=== PATIENT | female | born 1950 ===

== ENCOUNTER 2023-04-08 04:33 | Day surgery (SDC) | payer OTHER ==
[~2023-04-08 04:33] MED LIST: DOXAZOSIN MESYLA2 MG PO; GLUCOVANCE PO; PLAVIX75 MG PO; ROSUVAST PO; TIROSINT25 MCG PO; TOPROL XL25 M1 PO; ZESTORETIC 20-1 EAC1 PO
[2023-04-08] MEDS ORDERED: TRAM1TAB98 PO (12:07)
[2023-04-08] MEDS ORDERED: MACROBID 100 M100 MG PO (12:07)
== END 2023-04-08 15:45 | disposition home or self-care (01) ==
LOC: CIR.AMB 04:33
PROVIDERS: ATTEND Obstetrics & Gynecology Gynecology
DX: N81.11 Cystocele, midline (principal); N81.6 Rectocele; N81.5 Vaginal enterocele; Z20.822 Contact with and (suspected) exposure to COVID-19